=== PATIENT | female | born 1990 | race American Indian/Alaskan Native ===

== ENCOUNTER 2017-08-28 06:02 | Inpatient (IN) | payer MEDICAID ==
[2017-08-28] MEDS ORDERED: STADOL ONE (06:42)
[2017-08-28] MEDS ORDERED: LACTATED RINGERS 1,000 ML ONE (06:42)
[2017-08-28] MEDS ORDERED: PITOCin/NS 20 UNIT/1000ML DRIP 20,000 MILLIUNITS/1,000 ML BAG IV ONE (06:59)
[2017-08-28] MEDS ORDERED: PITOCin/NS 20 UNIT/1000ML DRIP 20 UNITS/1,000 ML BAG IV SCH (07:00)
[2017-08-28] MEDS ORDERED: LACTATED RINGERS 1,000 ML IV SCH (07:00)
[2017-08-28] MEDS ORDERED: STADOL IV PRN (07:00)
[2017-08-28] MEDS ORDERED: XYLOCAINE 2% INFILTRATI ONE ×2 (07:12→08:09)
[2017-08-28] MEDS ORDERED: SUBLIMAZE ONE (07:12)
[2017-08-28 07:21] LABS: Basophils % (Auto) 0.2 % (0.0-1.8); Eosinophils # (Auto) 0.1 K/mm3 (0.0-0.4); Eosinophils % (Auto) 0.5 % (0.0-4.3); Hematocrit 31.8 % (30.3-42.9); Hemoglobin 10.5 gm/dl (10.1-14.3); Lymphocytes # (Auto) 3.7 K/mm3 (1.2-5.4); Lymphocytes % (Auto) 27.9 % (13.4-35.0); Mean Corpuscular HGB Conc 33 % (30-34); Mean Corpuscular Hemoglobin 28 pg (28-32); Mean Corpuscular Volume 84 fl (79-97); Monocytes # (Auto) 1.2 K/mm3 (0.0-0.8); Monocytes % (Auto) 8.8 % (0.0-7.3); Platelet Count 297 K/mm3 (140-440); Red Blood Count 3.79 M/mm3 (3.65-5.03); Red Cell Distribution Width 15.6 % (13.2-15.2)
[2017-08-28] MEDS ORDERED: METHERGINE IM ONE (07:21)
[2017-08-28] MEDS ORDERED: EMLA TP ONE (07:31)
--- NOTE | 2017-08-28 07:42 | Procedure Note ---
OB Delivery Note - Delivery Date of Delivery: 08/28/17 Surgeon: BLANK HENRY Estimated blood loss: 200cc - Vaginal Delivery presentation: vertex Delivery position: OA Intrapartum events: precipitous labor- <3hr, other(please specify) (Patient w/ out epidural and uncontrolled delivery with laceration) Delivery induction: none Delivery monitor: external FHT, external uterine Route of delivery: Delivery placenta: spontaneous Delivery cord: 3 umbilical vessels Episiotomy: none Delivery laceration: 2nd degree Anesthesia: local, intravenous, other (Patient with severe Phobia for needles. EMLA cream used to help) Delivery comments: Normal vaginal delivery over intact perineum. Patient without epidural, delivery uncontrolled as patient moving due to pain. Patient sustained what looks like a second or third-degree laceration, unable to examine due to patient 's severe discomfort. Despite use of IV narcotics, EMLA cream, patient was to have lidocaine for repair - "I have a severe needle phobia". Options include leaving the laceration to heal by secondary intention or repairing the laceration under general anesthesia. Plan is for CNM to reexamine patient now and if wound is a second degree, will allow to heal by secondary intention. - Infant A at 1 minute: 8 at 5 minutes: 9 Gender: Male (Time of delivery is 07:02, weight is 8#1 or 3664 g)
[2017-08-28] MEDS ORDERED: PHENERGAN PR PRN (07:43)
[2017-08-28] MEDS ORDERED: LANSINOH TP PRN ×2 (07:43)
[2017-08-28] MEDS ORDERED: PHENERGAN PO PRN (07:43)
[2017-08-28] MEDS ORDERED: TYLENOL PO PRN (07:43)
[2017-08-28] MEDS ORDERED: METHERGINE IM PRN (07:43)
--- NOTE | 2017-08-28 07:54 | History and Physical Report ---
History of Present Illness Date of examination: 08/28/17 Date of admission: 08/28/17 06:32 Chief complaint: Precipitate delivery History of present illness: 26 y/o s/p ppt delivery over intact perineum at 39+5 wks. Past History Past Medical History: no pertinent history Past Surgical History: no surgical history [employer] History: denies: chlamydia, gonorrhea, hepatitis B, hepatitis C, herpes, HIV , syphilis Social history: single, full code. denies: smoking, alcohol abuse, prescription drug abuse, IV drug use - Obstetrical History Expected Date of Delivery: 08/30/17 Actual Gestation: 39 Week(s) 5 Day(s) : 4 Para: 4 Medications and Allergies Allergies Allergy/AdvReac Type Severity Reaction Status Date / Time eggs Allergy Rash Uncoded 08/28/17 06:17 Home Medications Medication Instructions Recorded Confirmed Last Taken Type HYDROcodone/ACETAMINOPHEN [[place] 1 each PO DAILY #7 tablet 08/28/17 Unknown Rx 5-325 Tablet] Ibuprofen [Motrin 600 MG tab] 600 mg PO Q8H PRN #30 tablet 08/28/17 Unknown Rx Multivitamin with Iron 1 each PO DAILY #30 tablet 08/28/17 Unknown Rx [Multivitamins with Iron] Active Meds: Active Medications Acetaminophen (Tylenol) 650 mg PO Q4H PRN PRN Reason: Pain MILD(1-3)/Fever >100.5/[place] Acetaminophen/Hydrocodone Bitart ([place] 5/325) 2 each PO Q6H PRN PRN Reason: Pain, Moderate (4-6) Bisacodyl (Dulcolax) 10 mg [place] BID PRN PRN Reason: Constipation Butorphanol Tartrate (Stadol) 2 mg IV Q2H PRN PRN Reason: Labor Pain Diphenhydramine HCl (Benadryl) 25 mg PO Q6H PRN PRN Reason: Itching Docusate Sodium (Colace) 100 mg PO BID GISELE Ferrous Sulfate (Feosol) 325 mg PO BID GISELE Lactated Ringer's (Lactated Ringers) 1,000 mls @ 125 mls/hr IV DIRECT GISELE Oxytocin/Sodium Chloride (Pitocin/Ns 20 Unit/1000ml Drip) 20 units in 1,000 mls @ 250 mls/hr IV DIRECT GISELE Ibuprofen (Motrin) 600 mg PO Q6H [place] Magnesium Hydroxide (Milk Of Magnesia) 30 ml PO HS PRN PRN Reason: Constipation Methylergonovine Maleate (Methergine) 0.2 mg IM Q4H PRN PRN Reason: Uterine Bleeding Multi-Ingredient Ointment (Lansinoh) 1 applic TP PRN PRN PRN Reason: Sore Nipples Multi-Ingredient Ointment (Lansinoh) 1 applic TP PRN PRN PRN Reason: dryness/cracking Multivitamins/Iron/Calcium ( Vitamin) 1 each PO QDAY [facility] Ondansetron HCl (Zofran) 4 mg IV Q8H PRN PRN Reason: Nausea And Vomiting Promethazine HCl (Phenergan) 25 mg [place] Q6H PRN PRN Reason: Nausea And Vomiting Promethazine HCl (Phenergan) 25 mg PO Q6H PRN PRN Reason: Nausea And Vomiting Senna/Docusate Sodium (Senokot S) 2 tab PO Q12H [facility] Sodium Chloride (Sodium Chloride Flush Syringe 10 Ml) 10 ml IV PRN NR Witch Sarika/Glycerin (Tucks Pad) 1 each TP PRN PRN PRN Reason: Hemorrhoid/cleansing/soothing Review of Systems Constitutional: no fever, no chills Cardiovascular: no chest pain, no syncope, no lightheadedness, no shortness of breath, no dyspnea on exertion Respiratory: no cough, no cough with sputum, no shortness of breath Gastrointestinal: no abdominal pain, no nausea, no vomiting - Vital Signs Vital signs: Vital Signs Pulse BP 77 124/81 08/28/17 06:14 08/28/17 06:14 Temp Pulse Resp BP Pulse Ox 97.7 F 102 H 18 131/82 100 08/28/17 06:53 08/28/17 07:06 08/28/17 06:53 08/28/17 06:53 08/28/17 07:06 - Physical Exam Cardiovascular: Regular rate, Normal S1, Normal S2 Lungs: Positive: Clear to auscultation, Normal air movement Abdomen: Positive: normal appearance, soft. Negative: tenderness, guarding Genitourinary (Female): Positive: normal external genitalia Uterus: Positive: other (Firm and well contracted) Results Result Diagrams: 08/28/17 06:45 Abnormal lab results 04/14/18 Range/Units 06:45 WBC 13.3 H (4.5-11.0) K/mm3 RDW 15.6 H (13.2-15.2) % [place] % (Auto) 8.8 H (0.0-7.3) % [place] # 1.2 H (0.0-0.8) K/mm3 Seg Neutrophils # 8.3 H (1.8-7.7) K/mm3 All other labs normal. Assessment and Plan POD # 0 s/p -Doing well P: -Routine PP care -Anticipate D/C in 24-48 hrs - Patient Problems (1) (normal spontaneous vaginal delivery) Current Visit: Yes Status: Acute (2) 39 weeks gestation of Current Visit: Yes Status: Acute
[2017-08-28] MEDS ORDERED: MILK OF MAGNESIA PO PRN (08:00)
[2017-08-28] MEDS ORDERED: BENADRYL PO PRN (08:00)
[2017-08-28] MEDS ORDERED: SODIUM CHLORIDE FLUSH SYRINGE 10 ML IV NR (08:00)
[2017-08-28] MEDS ORDERED: ZOFRAN IV PRN (08:00)
[2017-08-28] MEDS ORDERED: VERSED IV ONE (08:40)
[2017-08-28] MEDS ORDERED: VERSED ONE (08:45)
--- NOTE | 2017-08-28 09:03 | Event Note ---
Date: 08/28/17 Normal vaginal delivery over intact perineum. Patient without epidural, delivery uncontrolled as patient moving due to pain. Patient sustained what looks like a second or third-degree laceration, unable to examine due to patient 's severe discomfort. Despite use of IV narcotics, EMLA cream, patient was to have lidocaine for repair - "I have a severe needle phobia". Options include leaving the laceration to heal by secondary intention or repairing the laceration under general anesthesia. Plan is for CNM to reexamine patient now and if wound is a second degree, will allow to heal by secondary intention.
--- NOTE | 2017-08-28 09:19 | Event Note ---
Date: 08/28/17 (09:07) To pt bedside per request of Dr. John to examine perineum for possible repair. Pt states she has "severe phobia of needles." Able to preform thorough inspection. First degree perineal laceration, approximates well, no active bleeding, will leave unrepaired to heal by secondary intention. Explained healing process to pt and family. Encouraged myrna bottle with urination. Dr. John informed.
[2017-08-28] MEDS ORDERED: SUBLIMAZE IV NR (09:42)
[2017-08-28] MEDS ORDERED: DULCOLAX PR PRN (10:00)
[2017-08-28] MEDS: TUCKS PAD TP PRN (10:43)
[2017-08-28] MEDS: SENOKOT S PO SCH ×2 (10:44→21:41)
[2017-08-28] MEDS: FEOSOL PO SCH ×2 (10:44→21:45)
[2017-08-28] MEDS: COLACE PO SCH ×2 (10:44→21:45)
[2017-08-28] MEDS: PRENATAL VITAMIN PO SCH (10:45)
[2017-08-28] MEDS: MOTRIN PO SCH ×2 (11:59→23:42)
[2017-08-28] MEDS: NORCO 5/325 PO PRN (16:40)
[2017-08-28 20:38] LABS: Hematocrit 30.7 % (30.3-42.9)
[2017-08-29] MEDS: NORCO 5/325 PO PRN ×2 (01:53→23:45)
[2017-08-29] MEDS: MOTRIN PO SCH ×3 (05:43→21:49)
[2017-08-29] MEDS ORDERED: BOOSTRIX IM ONE (06:00)
[2017-08-29] MEDS: COLACE PO SCH ×2 (09:35→21:49)
[2017-08-29] MEDS: PRENATAL VITAMIN PO SCH (09:35)
[2017-08-29] MEDS: FEOSOL PO SCH ×2 (09:35→21:49)
[2017-08-29] MEDS: SENOKOT S PO SCH ×2 (10:00→23:47)
--- NOTE | 2017-08-29 16:22 | Progress Note ---
Assessment and Plan A: PPD#1 s/p Breast/bottle feeding Stable P: Routine care Discharge home in am Subjective - Subjective Date of service: 08/29/17 Principal diagnosis: Interval history: See H&P and delivery note Patient reports: appetite normal, voiding normally, pain well controlled, flatus , ambulating normally, no bowel movement : doing well, other (breast/bottle) Objective - Vital Signs Latest vital signs: Vital Signs Temp Pulse Resp BP BP Pulse Ox 08/29/17 08:10 98.2 F 70 18 104/62 100 08/29/17 04:00 98.6 F 71 18 112/78 08/29/17 00:00 98.6 F 72 18 114/76 08/28/17 19:30 98.6 F 62 16 109/56 Intake and Output 08/29/17 08/29/17 08/29/17 07:59 15:59 23:59 Intake Total 300 720 Balance 300 720 Intake: Oral 360 Intake, Free Water 300 360 Other: Total, Intake Amount 120 # Voids Void 1 - Exam Breasts: Present: normal Cardiovascular: Present: Regular rate, Normal S1, Normal S2 Lungs: Present: Clear to auscultation, Normal air movement Abdomen: Present: soft, normal bowel sounds Vulva: both: normal, laceration/episiotomy (1st degree, left unrepaired, well approximated, no active bleeding) Uterus: Present: firm, fundal height below umbilicus (-1) Extremities: Present: normal Deep Tendon Reflex Grade: Normal +2 - Labs Labs: Abnormal lab results 08/28/17 Range/Units 19:50 Hgb 10.0 L (10.1-14.3) gm/dl
--- NOTE | 2017-08-29 16:23 | Discharge Summary ---
Providers - Providers Date of Admission: 08/28/17 06:32 Date of discharge: 08/30/17 Attending physician: DANNY BHATT MD Primary care physician: DANNY BHATT MD Hospitalization Reason for admission: active labor, IUP at term Delivery: Procedure details: See delivery note Episiotomy: none Laceration: 1st degree complications: none Discharge diagnosis: IUP at term delivered baby: male Condition at discharge: Good Disposition: DC-01 TO HOME OR SELFCARE Plan - Discharge Medications Prescriptions: HYDROcodone/ACETAMINOPHEN [[place] 5-325 Tablet] 1 each PO DAILY #7 tablet Ibuprofen [Motrin 600 MG tab] 600 mg PO Q8H PRN #30 tablet PRN Reason: Pain Multivitamin with Iron [Multivitamins with Iron] 1 each PO DAILY #30 tablet - Provider Discharge Summary Activity: routine, no sex for 6 weeks, no heavy lifting 4 weeks, no strenuous exercise Diet: routine Instructions: routine Additional instructions: [] Smoking cessation referral if applicable(refer to patient education folder for contact #) [] Refer to [employer] Booklet Call your doctor immediately for: * Fever > 100.5 * Heavy vaginal bleeding ( >1 pad per hour) * Severe persistent headache * Shortness of breath * Reddened, hot, painful area to leg or breast * Drainage or odor from incision. * Keep incision clean and dry at all times and follow doctor's instructions regarding bathing/showering - Follow up plan Follow up: GALI BRIDGES, CNM [Advanced Practice Nurse] - 6 Weeks
[2017-08-29] MEDS: TUCKS PAD TP PRN (23:45)
[2017-08-30] MEDS: MOTRIN PO SCH (03:50)
[2017-08-30] MEDS: NORCO 5/325 PO PRN (05:41)
[2017-08-30 09:32] VITALS: BP 107/63
[2017-08-30] MEDS: PRENATAL VITAMIN PO SCH (10:13)
[2017-08-30] MEDS: FEOSOL PO SCH (10:13)
[2017-08-30] MEDS: COLACE PO SCH (10:13)
[2017-08-30] MEDS: SENOKOT S PO SCH (10:19)
[2017-08-30] MEDS ORDERED: BOOSTRIX IM ONE (12:00)
== END 2017-08-30 11:50 | disposition home or self-care (01) | DRG 775 ==
LOC: TRG 06:02 → LD 06:32 → OB 09:54
PROVIDERS: ADMIT Obstetrics & Gynecology; ATTEND Obstetrics & Gynecology
PROC: 10E0XZZ Delivery of Products of Conception, External Approach (ICD-10-PCS; principal; 2017-08-28)
PROC: 3E0234Z Introduction of Serum, Toxoid and Vaccine into Muscle, Percutaneous Approach (ICD-10-PCS; 2017-08-30)
DX: O62.3 Precipitate labor (principal); Z3A.39 39 weeks gestation of pregnancy; Z37.0 Single live birth; Z91.012 Allergy to eggs; Z23 Encounter for immunization; O70.0 First degree perineal laceration during delivery
CPT/HCPCS: 36415; 85014; 85018; 85025; 86592; 86850; 86900; 86901; 90715; A6250; J0595; J2210; J2250; J2590; J3010; J7120